=== PATIENT | female | born 1970 | race Caucasian/White ===

== ENCOUNTER 2024-03-18 11:14 | Day surgery (SDC) | payer OTHER ==
[~2024-03-18] VITALS: Ht 152.4 cm; Wt 65.8 kg
[2024-03-18] MEDS ORDERED: fentaNYL citrate 0.05 MG/ML VIAL ONE (12:01)
[2024-03-18] MEDS ORDERED: LIDOCAINE 2% 100 MG/5 ML UJET TP ONE (12:01)
[2024-03-18] MEDS: fentaNYL citrate 0.05 MG/ML VIAL IVP ONE (12:22)
[2024-03-18] MEDS: LIDOCAINE 2% 100 MG/5 ML UJET TP ONE (12:29)
== END 2024-03-18 13:45 | disposition home or self-care (01) ==
LOC: MDS 11:14 → MMU 11:17 → MDS 13:45
PROVIDERS: ATTEND Internal Medicine Gastroenterology
DX: Z12.11 Encounter for screening for malignant neoplasm of colon (principal); K63.5 Polyp of colon; K64.8 Other hemorrhoids; K57.30 Diverticulosis of large intestine without perforation or abscess without bleeding; E78.5 Hyperlipidemia, unspecified; Z90.49 Acquired absence of other specified parts of digestive tract; Z80.0 Family history of malignant neoplasm of digestive organs; Z79.899 Other long term (current) drug therapy; Z98.890 Other specified postprocedural states
CPT/HCPCS: 45385; 82948; J3010